=== PATIENT | male | born 2000 | race Caucasian/White ===

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

== ENCOUNTER 2022-12-21 12:39 | Emergency (ER) | payer BC, SELFPAY ==
[2022-12-21 12:59] VITALS: BP 157/94; PULSE 112; RESP 16; TEMP 36.7; O2SAT 96; BMI 21.5
--- NOTE | 2022-12-21 13:21 | EXP.UTC ---
Discharge Plan Prescriptions Prescriptions: No Action ondansetron 4 MG tablet,disintegrating 4 mg PO Q8HP PRN (Reason: Nausea) Qty: 12 0RF Referrals Follow up/Referrals: Brian Morales MD [Primary Care Provider] - See instructions Activity Restrictions/Add. Instructions Additional Instructions/Restrictions: Over the counter Ibuprofen may help with pain Ice to the area 20min 3-4 times daily Over the counter Muscle rubs may help with pain and discomfort Start slow with working out and do not over do it Return if needed Follow up with your Family Doctor if pain gets worse or does not improve Clinical Impressions Clinical Impression: Muscle ache Stand Alone Forms Stand Alone Forms: Work/School Release Instructions Patient Instructions: DI for Muscle Strain, Muscle Strain Discharge ED Provider: Cynthia Mckinney [facility] General Stated complaint: Arm pain, arm weakness no known accident Mode of Arrival: Ambulatory Source of Information: Patient Limitations: No Limitations Time Seen by Provider: 12/21/22 13:21 Description of Symptoms (Recalled from Triage Doc. by RN): pt c/o L elbow/FA pain that gets worse when he attempts to straighten his arm. pt also c/o weakness and pain in this R FA/elbow. pt states he recently started working out. pain has been ongoing since 12/18 shortly after he stopped working out that evening. 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 Social History Smoking Status: Unknown if ever smoked alcohol intake: never current occupational status: employed Travel in the last 8 weeks: None ROS Obtained: Yes All systems reviewed & no additional complaints except as documented and Yes Systems reviewed as appropriate & no additional complaints except as documented Constitutional Constitutional: Reports system reviewed and no additional complaints, except as documented and Reports as per HPI ENT Ears, Nose, Mouth, and Throat: Reports system reviewed and no additional complaints, except as documented and Reports as per HPI Cardiovascular Cardiovascular: Reports system reviewed and no additional complaints, except as documented and Reports as per HPI Respiratory Respiratory: Reports system reviewed and no additional complaints, except as documented and Reports as per HPI Gastrointestinal Gastrointestingal: Reports system reviewed and no additional complaints, except as documented and as per HPI Musculoskeletal Musculoskeletal: Reports system reviewed and no additional complaints, except as documented and Reports as per HPI Comments: soreness in both elbow areas worse with straightening arms that started after working out on Monday Denies any other injury Physical Exam General General appearance: alert and in no apparent distress Respiratory Respiratory exam: Present normal lung sounds bilaterally; Absent respiratory distress or wheezes Cardiovascular Cardiovascular exam: Presen
[2022-12-21 13:38] VITALS: BP 157/94; PULSE 112; RESP 16; TEMP 36.7
== END 2022-12-21 13:37 | disposition home or self-care (01) ==
PROVIDERS: Emergency Provider Nurse Practitioner; PCP Family Medicine
DX: M79.602 Pain in left arm (principal); M79.601 Pain in right arm; M62.81 Muscle weakness (generalized); X50.0XXA Overexertion from strenuous movement or load, initial encounter
CPT/HCPCS: 99212; 99214; G0463

== ENCOUNTER 2024-02-16 20:06 | Emergency (ER) | payer BC, SELFPAY ==
[2024-02-16 20:10] VITALS: BP 145/100; PULSE 104; RESP 16; TEMP 36.7; O2SAT 97; BMI 23.6
--- NOTE | 2024-02-16 20:23 | ED_ITS ---
Discharge Plan Disposition Chief Complaint: Dental/Oral Prescriptions Prescriptions: No Action ondansetron 4 MG tablet,disintegrating 4 mg PO Q8HP PRN (Reason: Nausea) Qty: 12 0RF Referrals Follow up/Referrals: Brian Morales MD [Primary Care Provider] - See instructions Activity Restrictions/Add. Instructions Additional Instructions/Restrictions: Call your family doctor to establish care for this visit to the emergency department and schedule follow-up within 48 hours to ensure improvement. If you have any worsening of your condition or any other concerning signs or symptoms, return to the emergency department or your primary care doctor for further evaluation. Discharge ED Provider: Ashutosh Busch General Adult HPI General Chief complaint: Dental/Oral Stated complaint: gum bleeding Time Seen by Provider: 02/16/24 20:14 Mode of Arrival: Family Vehicle Source of Information: Patient Limitations: No Limitations Description of Symptoms (Recalled from ER Triage Doc. by RN): 23 YO MALE PRES ENTS WITH SPONTANEOUS BLEEDING FROM THE GUMLINE IN HIS MOUTH. VSS. VERY ANXIOUS. ATRAUMATIC. NO ANTICOAGS/ANTIPLATELETS. History of Present Illness HPI narrative: Please note that above description of symptoms, in this electronic medical record under categorization of recalled from ER triage doctor by RN are reflective of an initial nursing assessment, however, is not reflective of my full history and physical exam that was personally taken and clarified. Consequentially, this preceding description of symptoms, which may include the patient's categorized chief complaint in the EMR, do not reflect my personal clinical impression, and the ultimate description of history of present illness and patient stated complaints should be deferred to this section of the note. Unless stated otherwise or congruent with this section of the note, additional signs, symptoms, or incongruence should be interpreted as inaccurate with my cl inical impression. Related Data Previous Rx's Medication Instructions Recorded ondansetron 4 mg disintegrating 4 mg PO Q8HP PRN Nausea #12 tabs 04/22/21 tablet Allergies Allergy/AdvReac Type Severity Reaction Status Date / Time No Known Allergies Allergy Verified 12/21/22 13:02 [facility] Disclaimer: The information contained in this section may have been updated after the patient was seen, as this information can be updated by other users. Social History (Updated 12/21/22 @ 13:34 by Cynthia Mckinney APRN) Smoking Status: Unknown if ever smoked alcohol intake: never current occupational status: employed Travel in the last 8 weeks: None ROS Obtained: Yes All systems reviewed & no additional complaints except as documented Physical Exam General General appearance: alert and in no apparent distress Head Head exam: atraumatic and normocephalic Eye Eye exam: Present normal appearance, PERRL and EOMI ENT ENT exam: Present mucous membranes moist and other (Poor dentition, gingivitis, clot at gingival line between teeth 6 and 7 as well as 7 and 8) Neck Neck exam: Present normal inspection, full ROM and trachea midline Respiratory Respiratory exam: Absent respiratory distress, wheezes, stridor, accessory muscle use or prolonged expiratory phase Cardiovascular Cardiovascular exam: Present normal rhythm Abdominal Exam Abdominal exam: Present soft; Absent distention, tenderness, guarding, rebound or rigidity Extremities Exam Extremities exam: Absent edema Neurological Exam Neurological exam: Present alert, oriented X3, CN II-XII intact and normal gait; Absent motor sensory deficit Skin Skin exam: Present warm and dry; Absent diaphoresis or erythema Medical Decision Making Medical Records Medical records reviewed: Yes I reviewed the patient's medical records. James Inquiry Pt receiving controlled substance: No James was queried for this patient: No Vital Signs: 02/16/24 20:10 Temperature 98.1 F Temperature Source Oral Pulse Rate [Right Brachial] 104 H Respiratory Rate 16 Blood Pressure [Right Arm] 145/100 H Blood Pressure Mean [Right Arm] 115 Blood Pressure Source [Right Arm] Automatic Cuff Blood Pressure Position [Right Arm] Sitting 02 Sat by Pulse Oximetry 97 Oxygen Delivery Method Room Air Medical Decision Narrative: 23-year-old male no relevant medical history of anxiety presenting with bleeding from his gums. States that he has been getting back to brushing and using his mouthwashes started bleeding earlier just prior to arrival brushing his teeth and states that he had blood all over his sink. No other symptoms. Patient not flossing. Denies fevers, weight loss, night sweats, pallor, easy bruising, easy bleeding in past, family history of blood malignancy or other malignancies, dyscrasias, or any other concerns. On arrival, patient hemodynamically stable. History obtained with patient and family. Patient does have small clots between teeth 6 and 7 as well as 7 and 8. Not actively bleeding. Patient has poor dentition, gingivitis, obvious gingival irritation, but no evidence of perirectal abscess or other actionable pathology. Given this, I feel imaging including Panorex versus CT unnecessary although considered. Hematologic workup was also considered to rule out hematologic malignancy, but given no easy bruising, no other signs of easy bleeding, no history of bleeding, no systemic signs or symptoms, deemed unnecessary at this time. Because patient at baseline without signs or symptoms of clinical decompensation, deemed appropriate for discharge. Results were relayed to patient who voiced understanding and were agreeable to outpatient management and follow up. I discussed my clinical impression with patient and answered all questions. At this time, the evidence for any other entities in the differential is insufficient to warrant any further testing or ED observation. This was explained as well. Advisory was given that persistent or worsening symptoms require further evaluation. I confirmed the understanding of this discussion. Investments Manager disclaimer Much of this encounter note is an electronic baby attendant spoken language to printed text. Electronic baby attendant of the spoken language may permit errors. Although I have reviewed the note, some errors may still exist. Critical Care Critical Care Time Critical Care Time: No
[2024-02-16 20:36] VITALS: BP 133/82; PULSE 89; RESP 18; TEMP 36.7; O2SAT 99
== END 2024-02-16 20:37 | disposition home or self-care (01) ==
PROVIDERS: Emergency Provider Emergency Medicine; PCP Family Medicine
DX: K06.8 Other specified disorders of gingiva and edentulous alveolar ridge (principal); K05.10 Chronic gingivitis, plaque induced
CPT/HCPCS: 99282